=== PATIENT | male | born 1960 | race Asian ===

== ENCOUNTER 2016-11-25 07:33 | Emergency (ER) | payer BC ==
[~2016-11-25] VITALS: Ht 180.3 cm; Wt 134.3 kg
[2016-11-25] MEDS ORDERED: HYDROCHLOROT12.5 M1 PO (07:53)
[2016-11-25] MEDS ORDERED: LISI20TA11 PO (07:53)
[2016-11-25] MEDS ORDERED: HYDR10TA47 PO (07:54)
[2016-11-25 09:37] VITALS: BP 152/99; TEMP 998
== END 2016-11-25 09:40 | disposition home or self-care (01) ==
LOC: ED 07:33
DX: T78.3XXA Angioneurotic edema, initial encounter (principal); T46.4X5A Adverse effect of angiotensin-converting-enzyme inhibitors, initial encounter; Y92.098 Other place in other non-institutional residence as the place of occurrence of the external cause
CPT/HCPCS: 36415; 96365; 96375; 99284; J1100; J1200

== ENCOUNTER 2018-11-15 10:24 | Outpatient (CLI) | payer BC, OTHER ==
[~2018-11-15 10:24] MED LIST: HYDR10TA47 PO; HYDROCHLOROT12.5 M1 PO; LISI20TA11 PO
== END 2018-11-15 21:36 | disposition home or self-care (01) ==
LOC: RAD 10:24
DX: M79.671 Pain in right foot (principal)